=== PATIENT | female | born 1995 | race Caucasian/White ===

== ENCOUNTER 2020-10-24 14:06 | Emergency (ER) | payer OTHER ==
[~2020-10-24] VITALS: Ht 165.1 cm; Wt 65.8 kg
[2020-10-24] MEDS ORDERED: ADDERALL 30 MG30 MG PO (16:49)
[2020-10-24] MEDS ORDERED: ADDERALL 20 MG20 MG PO (16:50)
== END 2020-10-24 19:05 | disposition home or self-care (01) ==
LOC: ED 14:06
DX: K29.20 Alcoholic gastritis without bleeding (principal); Z88.0 Allergy status to penicillin
CPT/HCPCS: 80053; 83690; 84703; 85025; 96374; 96375; 99284-25; J2405; J7030